=== PATIENT | female | born 1965 | race Caucasian/White ===

== ENCOUNTER → 2016-09-03 | Outpatient (CLI) | payer OTHER, BC ==
--- NOTE | ~2016-09-03 | ST ---
Unit #: [id number] #: [id number] Patient: EJ EDWARDS [id number] [address] [address] [id number] MR#: [id number] NAME: EJ EDWARDS : 1965 SEX: F STUDY DATE/TIME: 09/06/2016 UNIT: [facility] ROOM: STUDY DESCRIPTION: Attending Physician: Lyle Desir M.D. Referring Physician: Lyle Desir M.D. Primary Care Physician: Lyle Desir M.D. CARDIOLOGY REPORT EXAM Regular treadmill stress test. FINDINGS Resting heart rate is 77. Resting blood pressure is 130/90 mmHg. Baseline EKG shows normal sinus rhythm. No significant ST-T wave changes. PROCEDURE Patient was made to exercise on a standard blood pressure. Total exercise time is 7 minutes completing one minute of stage 3 on a standard Jesus protocol. Test stopped because of shortness of breath and elevated blood pressure. No complaints of chest pain, neck pain, arm pain, or jaw pain. Maximal heart rate obtained is 157 which is 92% of maximal predicted heart rate. Maximal blood pressure obtained is 200/[address]-T wave changes suggestive of ischemia. No arrhythmias noted. CONCLUSION 1. Fair exercise tolerance for age. 2. There is no clinical, hemodynamic, or EKG evidence of ischemia at moderate workload (92% of maximum predicted heart rate, 10.1 METs). 3. Normal heart rate response. 4. Hypertensive blood pressure response with a peak blood pressure of 200/100 mmHg. 5. Normal regular treadmill stress test with hypertensive blood pressure response with exercise. Dictated by... Tracie Camacho TD: 09/06/2016 12:40 JOB #: [id number] Unit #: [id number] #: [id number] Patient: EJ EDWARDS CARDIOLOGY REPORT Page 1 of 1 X Oxnaa Mack MD <ELECTRONICALLY SIGNED> 11/17/16 [id number] CARDIOLOGY REPORT
== END | disposition home or self-care (01) ==
LOC: CEKG 08:09
DX: R94.31 Abnormal electrocardiogram [ECG] [EKG] (principal)
CPT/HCPCS: 93017